=== PATIENT | male | born 1980 | race Caucasian/White ===

== ENCOUNTER 2016-11-21 16:25 | Emergency (ER) | payer BC, SELFPAY ==
[2016-11-21] MEDS ORDERED: Clindamycin 150 MG CAP ONE (17:47)
[2016-11-21] MEDS ORDERED: Acetaminophen/Codeine 30-300mg Tablet ONE (17:47)
--- NOTE | 2016-11-21 18:02 | ERRECORD ---
[facility] EMERGENCY RECORD HPI ABSCESS (21:36 JLOY) CHIEF COMPLAINT: Patient presents for evaluation of swelling, Patient presents for evaluation of pain, Patient presents for evaluation of drainage from wound, Patient presents for evaluation of Pt with small area of swelling and pain x3 days at the base of the penis. Pt with frequent small follicular abscesses on his groin/inner thigh that usually resolve but he had a severe case of major infection involving his scrotum that required hospitalization, surgery and iv abx 1 year ago and is concerned about a recurrence. HISTORIAN: History provided by patient. LOCATION: Symptoms are localized. QUALITY: Pain is dull in nature. TIME COURSE: Gradual onset of symptoms, Symptoms are worsening, are constant. ASSOCIATED WITH: No associated chills, No associated fever, No associated proximal streaking, No associated warmth, minimal small drainage earlier today. COMPLICATING FACTORS: No complicating factors for wound healing. EXACERBATED BY: Patient's condition exacerbated by nothing. RELIEVED BY: Patient's condition relieved by nothing. TETANUS: Tetanus status up to date. ROS (21:38 JLOY) CONSTITUTIONAL: Historian denies chills, denies fever. RESPIRATORY: Historian denies cough, denies shortness of breath. GI: Historian denies nausea, denies vomiting. SKIN: Historian reports induration, reports rash. PAST MEDICAL HISTORY MEDICAL HISTORY: Notes: BACK PAIN--CHRONICPast medical history includes history of hypertension- DOES NOT TAKE ANY MEDICATIONS. 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 STAPH FROM GROIN AREA. (17:02 JPAR) PSYCHIATRIC HISTORY: Anxiety. Panic Attack, last on 2 years. (17:02 JPAR) SOCIAL HISTORY: Patient denies alcohol use, Patient denies drug use, Patient currently uses tobacco, smokes cigarettes, daily, Patient has smoked for 5 years, Patient smokes 1 pack per day. (17:02 JPAR) FAMILY HISTORY: No significant family history. (17:02 JPAR) NOTES: Nursing records reviewed, Agree with nursing records. (21:39 JLOY) KNOWN ALLERGIES Sulfa (Sulfonamide Antibiotics): - Entered category: Sulfa(Sulfonamide Antibiotics) -- Entered category: Sulfa(Sulfonamide Antibiotics) -- Entered category: Sulfa(Sulfonamide Antibiotics) -- Entered category: Sulfa (Sulfonamide Antibiotics) &a-1R&a+25V*p+0X*y6236C*c152B*c15G*c2P*p-0X&a-25V&a+1RName: Yossi Rosas : M36 MedRec: [id number] AcctNum: [id number] Prepared: [facility] Nov 21, 2016 21:43 by Interface Page 1 of 3 pMD [facility] EMERGENCY RECORD CURRENT MEDICATIONS No recorded medications VITAL SIGNS (16:57 JPAR) VITAL SIGNS: BP: 124/83, Pulse: 75, Resp: 16, Temp: 97.9 (Oral), Pain: 7, O2 sat: 97 on Room Air, Time: 11/21/2016 16:57. PHYSICAL EXAM (21:38 JLOY) CONSTITUTIONAL: Vital signs reviewed, Patient appears non toxic, Patient alert and oriented to person, place and time. EYES: Eye exam included findings of eyelids normal to inspection, Pupils equally round and reactive to light, Conjunctiva normal. RESPIRATORY CHEST: Respiratory exam included findings of no respiratory distress, Chest exam included findings of chest movement symmetrical. GENITOURINARY MALE: Genitourinary exam included findings of penis normal, Testicles normal, base of penis on the right with a small area of apparent folicular abscess with swelling 1cm in diameter. No redness or warmth. TTP. NEURO: [place] coma scale 15, Neuro exam findings include patient oriented to person, place and time, Speech normal. SKIN: Skin exam included findings of skin warm, dry, and normal in color. PSYCHIATRIC: Normal affect. MEDICATION ADMINISTRATION SUMMARY Drug Name: clindamycin HCl, Dose Ordered: 300 mg, Route: Oral, Status: Canceled, Time: 17:51 11/21/2016, Drug Name: acetaminophen-codeine, Dose Ordered: 2 tab(s), Route: Oral, Status: Canceled, Time: 17:51 11/21/2016, Detailed record available in Medication Service section. DOCTOR NOTES (21:39 JLOY) TEXT: Offered I&D but the patient opted for po abx with close f/u if no improvement. PROBLEM LIST No recorded problems DIAGNOSIS (17:37 JLOY) FINAL: PRIMARY: CELLULITIS UNSPECIFIED. PRESCRIPTION clindamycin HCl: CAPSULE : 300 mg : ORAL : Quantity: 300 Unit: mg Route: ORAL Schedule: 4 times a day Dispense: 10 days May substitute. Refills: No Refills . (17:35 ROYER) NOTES: No Refills. (17:35 JLMILAGROS) acetaminophen-codeine: TABLET : 300 mg-30 mg : ORAL : Quantity: &a-1R&a+25V*p+0X*u8340C*c152B*c15G*c2P*p-0X&a-25V&a+1RName: Yossi Rosas : 6 MedRec: [id number] AcctNum: [id number] Prepared: FriNov 21, 2016 21:43 by Interface Page 2 of 3 pMD [facility] EMERGENCY RECORD 1-2 Unit: tab(s) Route: ORAL Schedule: every 6 hours PRN Dispense: 15 May substitute. Refills: No Refills . (17:36 ROYER) NOTES: No Refills. (17:36 ROYER) DISPOSITION PATIENT: Disposition Type: Discharge, Disposition: *Discharge Home. (17:37 ROYER) Patient left the department. (17:53 FELIX) Berger: ROYER=MD Bereket, Bradley [place]=GRANT Garcia, Jose Raul &a-1R&a+25V*p+0X*f8167G*c152B*c15G*c2P*p-0X&a-25V&a+1RName: Ralph Yossi : 6 MedRec: [id number] AcctNum: [id number] Prepared: FriNov 21, 2016 21:43 by Interface Page 3 of 3 pMD MTDD
--- NOTE | 2016-11-21 18:06 | PICIS ---
[facility] EMERGENCY RECORD TRIAGE (FriNov 21, 2016 16:59 JPAR) TRIAGE NOTES: Abscess on penis, 3 days. (FriNov 21, 2016 16:59 JPAR) PATIENT: NAME: Yossi Rosas, AGE: 36, GENDER: male, : FriJun 16, 1980, TIME OF GREET: FriNov 21, 2016 16:26, PREFERRED LANGUAGE: Divehi, ETHNICITY: Not or , ECODE BILLING MAP: [facility], SSN: [id number], Zip Code: [address], KG WEIGHT: 95.25, PHONE: , , , PERSON ID: [id number], PCP: Sarah Monteiro . (FriNov 21, 2016 16:59 JPAR) COMPLAINT: ABSCESS GROIN AREA. (FriNov 21, 2016 16:59 JPAR) ADMISSION: URGENCY: 4 Non Urgent, ADMISSION SOURCE: Home, TRANSPORT: CAR, BED: TRIAGE. (FriNov 21, 2016 16:59 JPAR) ASSESSMENT: Assessment: small abcess/ R side base of penis and swelling into r upper scrotum, Symptoms began 3 days, Symptoms began 3 days ago. (17:02 JPAR) SIRS SCORING: Heart Rate 55-109 (0), Temp range 96.8-101.1 (0), respiratory rate 12-24 (0), Mental Status altered: no (0), Infection or Suspected Infection: No. (17:02 JPAR) TRIAGE SCREENING: Patient denies suicidal ideation, Patient denies presence of domestic violence. (17:02 JPAR) PROVIDERS: TRIAGE NURSE: Jose Raul aGrcia RN. (FriNov 21, 2016 16:59 JPAR) VITAL SIGNS: BP 124/83, Pulse 75, Resp 16, Temp 97.9, (Oral), Pain 7, O2 Sat 97, on Room Air, Time 11/21/2016 16:57. (16:57 JPAR) PREVIOUS VISIT ALLERGIES: Sulfa (Sulfonamide Antibiotics). (FriNov 21, 2016 16:59 JPAR) Sulfa (Sulfonamide Antibiotics). (17:02 JPAR) KNOWN ALLERGIES Sulfa (Sulfonamide Antibiotics): - Entered category: Sulfa(Sulfonamide Antibiotics) -- Entered category: Sulfa(Sulfonamide Antibiotics) -- Entered category: Sulfa(Sulfonamide Antibiotics) -- Entered category: Sulfa (Sulfonamide Antibiotics) CURRENT MEDICATIONS No recorded medications VITAL SIGNS (16:57 JPAR) VITAL SIGNS: BP: 124/83, Pulse: 75, Resp: 16, Temp: 97.9 (Oral), Pain: 7, O2 sat: 97 on Room Air, Time: 11/21/2016 16:57. NURSING ASSESSMENT: SKIN (17:04 JPAR) CONSTITUTIONAL: Patient arrives ambulatory, Gait steady, History obtained from patient, Patient appears comfortable, Patient cooperative, Patient alert, Oriented to person, place and time, Skin warm, Skin dry, Skin normal in color, Mucous membranes pink, Mucous membranes moist. PAIN: aching pain, Base of Penis, R upper scrotum, Onset of pain 3 days, on a scale 0-10 patient rates pain as 7. &a-1R&a+25V*p+0X*l8740U*c152B*c15G*c2P*p-0X&a-25V&a+1RName: Yossi Rosas : M36 MedRec: [id number] AcctNum: [id number] Prepared: Sara Nov 21, 2016 21:49 by Interface Page 1 of 5 D [facility] EMERGENCY RECORD SKIN: Skin assessment findings include skin warm, Skin dry, Skin normal in color, Inspection findings include redness, to Base of Penis, Inspection findings include swelling, to R base of Penis and Scrotum. SAFETY: Side rails up, Cart/Stretcher in lowest position, Family at bedside, Call light within reach, Hospital ID band on. NURSING PROCEDURE: DISCHARGE NOTE (17:48 JPAR) DISCHARGE: Patient discharged to home, ambulating without assistance, family driving, accompanied by other family member, Summary of Care printed/ provided, Patient requested and was provided an electronic copy of Discharge Instructions, Transition record given to patient, Discharge instructions given to patient, Simple or moderate discharge teaching performed, Prescriptions given and instructions on side effects given, Name of prescription(s) given: Clindamycin, Tylenol # 3, Medication reconciliation form given, Above person(s) verbalized understanding of discharge instructions and follow-up care, Patient treated and evaluated by physician. BELONGINGS: Belongings and valuables with patient at time of discharge include:, Belongings remain with patient, Valuables remain with patient. SAFETY: Side rails up, Cart/Stretcher in lowest position, Family at bedside, Call light within reach, Hospital ID band on. MEDICATION ADMINISTRATION SUMMARY Drug Name: clindamycin HCl, Dose Ordered: 300 mg, Route: Oral, Status: Canceled, Time: 17:51 11/21/2016, Drug Name: acetaminophen-codeine, Dose Ordered: 2 tab(s), Route: Oral, Status: Canceled, Time: 17:51 11/21/2016, Detailed record available in Medication Service section. MEDICATION SERVICE (17:51 ROYER Updated: :51 FELIX) (CANCELED) acetaminophen-codeine: Order: acetaminophen-codeine (acetaminophen/codeine phosphate) - Dose: 2 tab(s) : Oral Ordered by: Bradley Cuba MD Entered by: Bradley Cuba MD [facility] Nov 21, 2016 17:35 , Acknowledged by: Jose Raul Garica RN [facility] Nov 21, 2016 17:46 Canceled by: Jose Raul Garcia RN. FriNov 21, 2016 17:51 Cancel reason: Change in medication plan:Pt left and did not wait for meds after discharge. (CANCELED) clindamycin HCl: Order: clindamycin HCl - Dose: 300 mg : Oral Ordered by: Bradley Cuba MD Entered by: Bradley Cuba MD [facility] Nov 21, 2016 17:34 , Acknowledged by: Jose Raul Garcia RN [facility] Nov 21, 2016 17:47 Canceled by: Jose Raul Garcia RN. [facility] Nov 21, 2016 17:51 Cancel reason: Change in medication plan:Pt left prior to medication admin. HPI ABSCESS (21:36 ROYER) &a-1R&a+25V*p+0X*t9334W*c152B*c15G*c2P*p-0X&a-25V&a+1RName: Yossi Rosas : M36 MedRec: [id number] AcctNum: [id number] Prepared: Sara Nov 21, 2016 21:49 by Interface Page 2 of 5 pMD [facility] EMERGENCY RECORD CHIEF COMPLAINT: Patient presents for evaluation of swelling, Patient presents for evaluation of pain, Patient presents for evaluation of drainage from wound, Patient presents for evaluation of Pt with small area of swelling and pain x3 days at the base of the penis. Pt with frequent small follicular abscesses on his groin/inner thigh that usually resolve but he had a severe case of major infection involving his scrotum that required hospitalization, surgery and iv abx 1 year ago and is concerned about a recurrence. HISTORIAN: History provided by patient. LOCATION: Symptoms are localized. QUALITY: Pain is dull in nature. TIME COURSE: Gradual onset of symptoms, Symptoms are worsening, are constant. ASSOCIATED WITH: No associated chills, No associated fever, No associated proximal streaking, No associated warmth, minimal small drainage earlier today. COMPLICATING FACTORS: No complicating factors for wound healing. EXACERBATED BY: Patient's condition exacerbated by nothing. RELIEVED BY: Patient's condition relieved by nothing. TETANUS: Tetanus status up to date. ROS (21:38 JLOY) CONSTITUTIONAL: Historian denies chills, denies fever. RESPIRATORY: Historian denies cough, denies shortness of breath. GI: Historian denies nausea, denies vomiting. SKIN: Historian reports induration, reports rash. PAST MEDICAL HISTORY MEDICAL HISTORY: Notes: BACK PAIN--CHRONICPast medical history includes history of hypertension- DOES NOT TAKE ANY MEDICATIONS. 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 STAPH FROM GROIN AREA. (17:02 JPAR) PSYCHIATRIC HISTORY: Anxiety. Panic Attack, last on 2 years. (17:02 JPAR) SOCIAL HISTORY: Patient denies alcohol use, Patient denies drug use, Patient currently uses tobacco, smokes cigarettes, daily, Patient has smoked for 5 years, Patient smokes 1 pack per day. (17:02 JPAR) FAMILY HISTORY: No significant family history. (17:02 JPAR) NOTES: Nursing records reviewed, Agree with nursing records. (21:39 JLOY) PHYSICAL EXAM (21:38 JLOY) CONSTITUTIONAL: Vital signs reviewed, Patient appears non toxic, Patient alert and oriented to person, place and time. EYES: Eye exam included findings of eyelids normal to inspection, Pupils equally round and reactive to light, Conjunctiva normal. RESPIRATORY CHEST: Respiratory exam included findings of no &a-1R&a+25V*p+0X*p3286E*c152B*c15G*c2P*p-0X&a-25V&a+1RName: Yossi Rosas : M36 MedRec: [id number] AcctNum: [id number] Prepared: Sara Nov 21, 2016 21:49 by Interface Page 3 of 5 pMD [facility] EMERGENCY RECORD respiratory distress, Chest exam included findings of chest movement symmetrical. GENITOURINARY MALE: Genitourinary exam included findings of penis normal, Testicles normal, base of penis on the right with a small area of apparent folicular abscess with swelling 1cm in diameter. No redness or warmth. TTP. NEURO: [place] coma scale 15, Neuro exam findings include patient oriented to person, place and time, Speech normal. SKIN: Skin exam included findings of skin warm, dry, and normal in color. PSYCHIATRIC: Normal affect. EVENTS TRANSFER: Triage to Emergency Triage. (16:59 JPAR) Emergency Triage to Emergency Room -04. (16:59 JPAR) Removed from Emergency Emergency Room -04. (17:53 JPAR) DOCTOR NOTES (21:39 JLOY) TEXT: Offered I&D but the patient opted for po abx with close f/u if no improvement. PROBLEM LIST No recorded problems DIAGNOSIS (17:37 JLOY) FINAL: PRIMARY: CELLULITIS UNSPECIFIED. DISPOSITION PATIENT: Disposition Type: Discharge, Disposition: *Discharge Home. (17:37 JLOY) Patient left the department. (17:53 JPAR) INSTRUCTION (17:37 JLOY) DISCHARGE: ABSCESS, ABX ONLY. FOLLOWUP: Follow up with Primary Care Physician in 7-10 days. PRESCRIPTION clindamycin HCl: CAPSULE : 300 mg : ORAL : Quantity: 300 Unit: mg Route: ORAL Schedule: 4 times a day Dispense: 10 days May substitute. Refills: No Refills . (17:35 JLOY) NOTES: No Refills. (17:35 JLOY) acetaminophen-codeine: TABLET : 300 mg-30 mg : ORAL : Quantity: 1-2 Unit: tab(s) Route: ORAL Schedule: every 6 hours PRN Dispense: 15 May substitute. Refills: No Refills . (17:36 [facility]) NOTES: No Refills. (17:36 [facility]) IMAGING (17:46 [facility]) *DISCHARGE INSTRUCTIONS RECEIPT: Image captured from scanner. *SUPPLY CHARGE SHEET: Image captured from scanner. &a-1R&a+25V*p+0X*t1773L*c152B*c15G*c2P*p-0X&a-25V&a+1RName: Yossi Rosas : [facility] MedRec: [id number] AcctNum: [id number] Prepared: FriNov 21, 2016 21:49 by Interface Page 4 of 5 pMD [facility] EMERGENCY RECORD ADMIN (21:40 [facility]) DIGITAL SIGNATURE: MD Cuba Joshua. Berger: BRADLEY=PAM Ellison Bobbie JLOY=MD Cuba Joshua JPAR=Radha, GRANT, Jose Raul &a-1R&a+25V*p+0X*n0020A*c152B*c15G*c2P*p-0X&a-25V&a+1RName: Yossi Rosas : [facility] [place] MedRec: [id number] AcctNum: [id number] Prepared: FriNov 21, 2016 21:49 by Interface Page 5 of 5 pMD MTDD
== END 2016-11-21 17:41 | disposition home or self-care (01) ==
LOC: NAV ERS 16:25
DX: N48.22 Cellulitis of corpus cavernosum and penis (principal); I10 Essential (primary) hypertension; F41.9 Anxiety disorder, unspecified; F17.210 Nicotine dependence, cigarettes, uncomplicated
CPT/HCPCS: 99283

== ENCOUNTER 2018-03-20 11:24 | Emergency (ER) | payer SELFPAY ==
[~2018-03-20 11:24] MED LIST: Iopamidol 370 76% 100 ML VIAL ONE
[2018-03-20] MEDS ORDERED: Ondansetron HCl/PF 4 MG/2 ML Vial ONE (11:43)
[2018-03-20] MEDS ORDERED: Sodium Chloride 0.9% 1,000 ML ONE ×3 (11:43→13:21)
[2018-03-20] MEDS ORDERED: Ketorolac Tromethamine 30 MG/ML VIAL ONE (11:43)
[2018-03-20] MEDS ORDERED: Promethazine HCl 25 MG/ML VIAL ONE (12:01)
[2018-03-20 12:09] LABS: Hemoglobin 17.6 g/dL (14.0-18.0); Mean Corpuscular HGB CONC 33.4 g/dL (32.0-36.0); Mean Corpuscular Hemoglobin 29.7 pg (27.0-31.0); Mean Corpuscular Volume 88.9 fl (80.0-94.0); Platelet Count 412 thou/uL (130-400); RBC Distribution Width 11.8 % (11.5-14.5); Red Blood Cell (RBC) Count 5.95 mill/uL (4.70-6.10); White Blood Cell (WBC) Count 21.8 thou/uL (4.8-10.8)
[2018-03-20 12:16] LABS: ALT (SGPT) 25 U/L (8-55); AST (SGOT) 22 U/L (5-34); Albumin 5.3 g/dL (3.5-5.0); Alkaline Phosphatase 94 U/L (40-150); Anion Gap 22 mmol/L (10-20); BUN (Urea Nitrogen) 27 mg/dL (8.9-20.6); Bilirubin, Total 0.9 mg/dL (0.2-1.2); CK (CPK) 488 U/L (30-200); Calc. Creatinine Clearance 0 mL/min (70-130); Calcium 10.4 mg/dL (7.8-10.44); Carbon Dioxide 19 mmol/L (22-29); Chloride 97 mmol/L (98-107); Estimated GFR-MDRD 45; Globulin 3.5 g/dL (2.4-3.5); Glucose 123 mg/dL (70-105); Lipase 19 U/L (8-78); Potassium 3.3 mmol/L (3.5-5.1); Protein, Total 8.8 g/dL (6.0-8.3); Sodium 135 mmol/L (136-145)
[2018-03-20 12:16] LABS: CKMB 3.4 ng/mL (0-6.6); Troponin I 0.041 ng/mL (< 0.028)
[2018-03-20 12:24] LABS: Band 2 % (5-11); Lymphocytes 16 % (21-51); MDiff Complete? YES; Monocytes 12 % (0-10); Neutrophil 70 % (42-75); PLT Morphology Comment Appears Adequate; RBC Morphology Normal
[2018-03-20] MEDS ORDERED: Morphine 4 MG/ML Carpuject ONE (12:39)
[2018-03-20] MEDS ORDERED: Piperacillin/Tazobactam 3.375 GM VIAL ONE (12:50)
[2018-03-20] MEDS ORDERED: Sodium Chloride 0.9% 100 ML ONE (12:51)
--- NOTE | 2018-03-20 13:30 | CT ---
CT ABDOMEN AND PELVIS WITH CONTRAST: Date: 03/20/18 HISTORY: Nausea, vomiting, and abdominal pain. COMPARISON: CT abdomen and pelvis dated 11/08/15. FINDINGS: Lung bases are clear. No pericardial effusion. Diffuse hepatic steatosis. Small splenules present. Pancreas unremarkable. No hydronephrosis. Kidneys unremarkable. Aortoiliac contour is normal. Appendix is visualized and is normal. Small, right-sided, fat-containing, direct inguinal hernia. No acute osseous abnormality. IMPRESSION: 1. No acute inflammatory process of the abdomen or pelvis. 2. Diffuse hepatic steatosis. POS: [facility]
== END 2018-03-20 13:35 | disposition short-term general hospital (02) ==
LOC: NAV ERS 11:24
DX: A41.9 Sepsis, unspecified organism (principal); K65.9 Peritonitis, unspecified; R65.20 Severe sepsis without septic shock; R79.89 Other specified abnormal findings of blood chemistry; I10 Essential (primary) hypertension; F31.9 Bipolar disorder, unspecified; F17.210 Nicotine dependence, cigarettes, uncomplicated; Z79.899 Other long term (current) drug therapy
CPT/HCPCS: 74177; 80053; 82150; 82553; 83605; 83690; 84484; 85025; 87040; 93005; 96361; 96365; 96375; J1885; J2270; J2405; J2543; J2550; J7050

== ENCOUNTER 2018-04-04 07:43 | Emergency (ER) | payer SELFPAY ==
[2018-04-04] MEDS ORDERED: Sodium Chloride 0.9% 1,000 ML ONE ×2 (08:36→09:39)
[2018-04-04] MEDS ORDERED: Morphine 4 MG/ML Carpuject ONE ×2 (08:48→10:02)
[2018-04-04] MEDS ORDERED: Ondansetron HCl/PF 4 MG/2 ML Vial ONE (08:48)
[2018-04-04] MEDS ORDERED: Pantoprazole 40 MG VIAL ONE (08:49)
--- NOTE | 2018-04-04 08:53 | RAD ---
CHEST 1 VIEW: Date: 04/04/18 HISTORY: 37-year-old male with history of left upper quadrant and left lower quadrant abdominal pain. COMPARISON: 03/20/18. FINDINGS: Heart size is normal. The lungs are clear. No pneumonia, edema, or pleural effusion. IMPRESSION: No acute intrathoracic disease. POS: [facility]
--- NOTE | 2018-04-04 08:57 | CT ---
ABDOMEN AND PELVIC CT SCAN WITHOUT IV CONTRAST: Date: 04/04/18 HISTORY: 37-year-old male with history of abdominal pain, severe left upper quadrant and left lower quadrant p ain radiating to the rest of the abdomen. FINDINGS: There is severe motion artifact, which considerably lowers the sensitivity of this study. Visualized lower lung zones are clear. Fatty changes in the liver with some fatty sparing adjacent to the gallbl adder. Gallbladder, pancreas, spleen, and adrenal glands are unremarkable without IV contrast. No nick al calculus or acute obstruction. Normal appearing appendix. Small, fat-containing inguinal hernia s. No abscess, adenopathy, or abnormal fluid collection. IMPRESSION: No significant acute process in the abdomen or pelvis. Marked motion artifact. Fatty changes in the l iver. Small inguinal fat-containing hernias. POS: [facility]
[2018-04-04 09:05] LABS: #Basophils 0.1 thou/uL (0.0-0.2); #Eosinphils 0.2 thou/uL (0.0-0.7); #Neutrophils 9.5 thou/uL (1.40-6.50); %Eosinophils 1.5 % (0.0-10.0); %Lymphocytes 15.3 % (21.0-51.0); %Monocytes 7.9 % (0.0-10.0); %Neutrophils 74.3 % (42.0-75.0); Hemoglobin 15.8 g/dL (14.0-18.0); Mean Corpuscular HGB CONC 34.2 g/dL (32.0-36.0); Mean Corpuscular Hemoglobin 30.1 pg (27.0-31.0); Mean Corpuscular Volume 87.9 fl (80.0-94.0); Mean Platelet Volume 6.8 fL (7.4-10.4); Platelet Count 344 thou/uL (130-400); RBC Distribution Width 11.6 % (11.5-14.5); Red Blood Cell (RBC) Count 5.25 mill/uL (4.70-6.10); White Blood Cell (WBC) Count 12.8 thou/uL (4.8-10.8)
[2018-04-04 09:32] LABS: ALT (SGPT) 38 U/L (8-55); AST (SGOT) 35 U/L (5-34); Albumin 4.8 g/dL (3.5-5.0); Alkaline Phosphatase 88 U/L (40-150); Anion Gap 21 mmol/L (10-20); BUN (Urea Nitrogen) 13 mg/dL (8.9-20.6); Bilirubin, Total 1.4 mg/dL (0.2-1.2); Calc. Creatinine Clearance 0 mL/min (70-130); Calcium 9.8 mg/dL (7.8-10.44); Carbon Dioxide 17 mmol/L (22-29); Chloride 100 mmol/L (98-107); Estimated GFR-MDRD 86; Globulin 3.1 g/dL (2.4-3.5); Glucose 139 mg/dL (70-105); Lipase 11 U/L (8-78); Potassium 3.4 mmol/L (3.5-5.1); Protein, Total 7.9 g/dL (6.0-8.3); Sodium 135 mmol/L (136-145)
[2018-04-04 09:33] LABS: Troponin I Less than 0.010 ng/mL (< 0.028)
[2018-04-04] MEDS ORDERED: Sodium Chloride 0.9% 250 ML 250 ML ONE (10:10)
[2018-04-04 10:12] LABS: Bilirubin Small (Negative); Blood, Urine Negative (Negative); Clarity Clear (Clear); Glucose, Urine (Dipstick) Negative (Negative); Leukocyte Trace (Negative); Nitrite Negative (Negative); Protein, Urine (Dipstick) 100 mg/dL (Neg-Trace); pH, Urine 6.5 (5.0-9.0)
[2018-04-04 10:32] LABS: Bacteria/HPF Rare-Few HPF (None Seen); RBC/HPF 0-3 HPF (0-3); Squamous Epithelial 0-3 HPF (0-3); WBC/HPF 0-3 HPF (0-3)
== END 2018-04-04 10:50 | disposition short-term general hospital (02) ==
LOC: NAV ERS 07:43
DX: R10.32 Left lower quadrant pain (principal); R10.13 Epigastric pain; R74.0 Nonspecific elevation of levels of transaminase and lactic acid dehydrogenase [LDH]; I10 Essential (primary) hypertension; F31.9 Bipolar disorder, unspecified; F20.9 Schizophrenia, unspecified; F90.9 Attention-deficit hyperactivity disorder, unspecified type; F41.9 Anxiety disorder, unspecified; F43.10 Post-traumatic stress disorder, unspecified; F17.210 Nicotine dependence, cigarettes, uncomplicated
CPT/HCPCS: 36415; 71045; 74176; 80053; 81003; 81015; 82150; 82248; 82553; 83605; 83690; 84484; 85025; 87040; 93005; 96361; 96365; 96375; 96376; C9113; J2270; J2405; J3370; J7050